=== PATIENT | male | born 1940 | race Caucasian/White ===

== ENCOUNTER 2021-10-01 11:15 | Outpatient (CLI) | payer OTHER | END 2021-10-01 11:16 | disposition home or self-care (01) | LOC: CSHCT 11:15 | PROVIDERS: ATTEND Internal Medicine Cardiovascular Disease | DX: Z01.818 Encounter for other preprocedural examination (principal); I48.0 Paroxysmal atrial fibrillation; I25.10 Atherosclerotic heart disease of native coronary artery without angina pectoris; R04.0 Epistaxis; I51.7 Cardiomegaly; I31.3 Pericardial effusion (noninflammatory); I70.0 Atherosclerosis of aorta | CPT/HCPCS: 71275 ==

== ENCOUNTER 2022-11-24 19:49 | Emergency (ER) | payer OTHER | END 2022-11-24 22:51 | disposition home or self-care (01) | LOC: CSHERS 19:49 | DX: S09.90XA Unspecified injury of head, initial encounter (principal); S20.212A Contusion of left front wall of thorax, initial encounter; I10 Essential (primary) hypertension; W19.XXXA Unspecified fall, initial encounter | CPT/HCPCS: 70450; 71045; 72125 ==